=== PATIENT | male | born 1960 | race Caucasian/White ===

== ENCOUNTER → 2019-02-10 | Outpatient (CLI) | payer OTHER ==
[2019-02-10 19:59] LABS: CLARITY,URINE TURBID; COLOR,URINE BROWN; GLUCOSE, URINE (UA) NEGATIVE (NEGATIVE); PROTEIN,URINE 2+ (NEGATIVE)
[2019-02-10 20:00] LABS: BILIRUBIN,URINE NEGATIVE (NEGATIVE); KETONES,URINE NEGATIVE (NEGATIVE); LEUKOCYTE ESTERASE ,URINE 2+ (NEGATIVE); NITRITE,URINE NEGATIVE (NEGATIVE); UROBILINOGEN,URINE 0.2 MG/DL (NORMAL)
[2019-02-10 20:01] LABS: AMORPHOUS SEDIMENT,UR MOD AMOR PHOSPHATE /LPF; BACTERIA,URINE NEGATIVE /HPF; WBC,URINE TNTC /HPF
== END ==
LOC: LAB FS 18:52
PROVIDERS: ATTEND Internal Medicine Nephrology
DX: R82.90 Unspecified abnormal findings in urine (principal); R11.2 Nausea with vomiting, unspecified
CPT/HCPCS: 81000; 87088